=== PATIENT | male | born 1980 | race Caucasian/White ===

== ENCOUNTER 2019-09-13 08:57 | Emergency (ER) | payer OTHER ==
[2019-09-13 09:06] VITALS: BP 135/99
--- NOTE | 2019-09-13 09:11 | ED Physician Documentation ---
PD HPI SKIN - Stated complaint Stated Complaint: BUMP ON THIGH - Chief complaint Chief Complaint: Wound - History obtained from History obtained from: Patient - History of Present Illness Timing - onset: How many days ago (few) Timing - duration: Days (few) Timing - details: Gradual onset, Still present (has gotten bigger and more tender the past day.) Location: RLE (back of thigh) Quality / character: Painful, Discolored (red), Other (he has small 1 cm abscess right inguinal area as well that is draining some pus.). No: Draining Associated symptoms: No: Fever, N/V/D Similar symptoms before: Diagnosis (has had prior abscesses that have drained on their own or with squeezing and then gone away, but others will develop in other places. Has had one with I&D and Rx with oral abx and topical ointment and improved. However, continues to get more.) Recently seen: Not recently seen Review of Systems Constitutional: denies: Fever, Chills, Myalgias GI: denies: Nausea, Vomiting, Diarrhea Neurologic: denies: Generalized weakness, Focal weakness, Numbness PD PAST MEDICAL HISTORY - Past Medical History Past Medical History: No - Present Medications Home Medications: Ambulatory Orders Medication Instructions Recorded Confirmed Chlorhexidine Gluconate [Hibiclens] 15 ml TP DAILY #236 ml 09/13/19 Mupirocin 1 applic TP TID #15 g 09/13/19 Sulfamethox/Trimeth 800/160 1 each PO BID #14 tablet 09/13/19 [Bactrim Ds 800/160] Valacyclovir HCl [Valtrex] 0 mg 09/13/19 - Allergies Allergies/Adverse Reactions: Allergies Allergy/AdvReac Type Severity Reaction Status Date / Time No Known Drug Allergies Allergy Verified 09/13/19 09:06 PD ED PE NORMAL - Vitals Vital signs reviewed: Yes - General General: Alert and oriented X 3, Well developed/nourished - Cardiac Cardiac: RRR, No murmur - Respiratory Respiratory: Clear bilaterally - Derm Derm: Normal color, Warm and dry - Extremities Extremities: Other (right posterior upper thigh with skin abscess, with redness about 4 cm diameter, with central pointing and fluctuance. No drainage. few other small red bumps just few mm size on thigh as well. Right inguinal area with 1 cm sized abscess that is draining mild pus. ) - Neuro Neuro: Alert and oriented X 3, No motor deficit, No sensory deficit, Normal sp eech Results - Vitals Vitals: Vital Signs - 24 hr 09/13/19 09:02 Temperature 36.3 C L Heart Rate 90 Respiratory 18 Rate Blood Pressure 135/99 H O2 Saturation 97 Oxygen O2 Source Room air Procedures - Abscess I&D (location) right posterior upper thigh Preparation: Lidocaine 1%, With epi Incision: Incised with scalpel, Purulent drainage, Irrigated. No: Packed, Culture obtained Other: Pt tolerated well, Antibiotic prescribed PD MEDICAL DECISION MAKING - ED course Complexity details: considered differential (exam c/w abscess. He has small one at inguinal area that is draining already. Few small red bumps on thigh as well. Will treat with hibiclens, oral abx as well as I&D. ), d/w patient Departure - Departure Disposition: 01 Home, Self Care Clinical Impression: Thigh abscess Condition: Stable Record reviewed to determine appropriate education?: Yes Instructions: ED Abscess IandD Follow-Up: [facility] [Provider Group] Prescriptions: Chlorhexidine Gluconate [Hibiclens] 15 ml TP DAILY #236 ml Mupirocin 1 applic TP TID #15 g Sulfamethox/Trimeth 800/160 [Bactrim Ds 800/160] 1 each PO BID #14 tablet Comments: Warm moist soaks or compresses to the abscess area to promote drainage and improve blood flow. Bactrim antibiotic twice daily for a week. Use mupirocin antibiotic ointment to the current abscess areas 2-3 times daily. Also use the mupirocin daily a small amount worked around the fingernail beds and a little bit in the nostril openings. This tries to reduce the reservoirs where the staph aureus germs harbor. Also use chlorhexidine antiseptic wash head to toe daily for the next week and then once or twice a week after that for a few weeks. This also tries to decrease the load of germs on the skin surface to prevent subsequent infections. Hopefully this will reduce the germ load and reservoir so you do not get recurrent infections still. Tylenol or ibuprofen as needed for pains. Recheck if not improved well over the next several days. Discharge Date/Time: 09/13/19 10:16
[2019-09-13] MEDS ORDERED: KETOROLAC 60 MG/2 ML VIAL IM STA (09:20)
[2019-09-13] MEDS ORDERED: ACETAMINOPHEN 325 MG TABLET PO STA (09:20)
[2019-09-13] MEDS ORDERED: SULFAMETH/TRIMETH DS 800/160 MG TABLET PO STA (09:20)
== END 2019-09-13 10:16 | disposition home or self-care (01) ==
LOC: ED 08:57
DX: L02.415 Cutaneous abscess of right lower limb (principal); L02.214 Cutaneous abscess of groin
CPT/HCPCS: 10060; 96372; 99283; 99284; A9270

== ENCOUNTER 2019-11-13 14:04 | Outpatient (CLI) | payer OTHER ==
--- NOTE | 2019-11-13 17:59 | MRI Report ---
Reason: LOW BACK PAIN Procedure Date: 11/13/2019 Accession Number: [id number] / [id number] Procedure: MRI - Lumbar Spine W/O CPT Code: Final Report FULL RESULT: EXAM: MRI LUMBAR SPINE WITHOUT CONTRAST EXAM DATE: 11/13/2019 03:05 PM. CLINICAL HISTORY: Low back pain. COMPARISON: None. TECHNIQUE: Multiplanar, multisequence T1-weighted and fluid-sensitive sequences of the lumbar spine from T12 to S1 without contrast. Other: None. FINDINGS: Spinal Canal: The conus terminates at L1. The conus medullaris and cauda equina are unremarkable. Alignment: No scoliosis or spondylolisthesis. Bone Marrow: Five [id number] lumbar vertebral bodies are assumed. No fracture. No destructive bone lesion. Small amount of diskogenic endplate edema at the L3-L4 level. Disk Levels/Facets: T12-L1: Unremarkable. L1-L2: Central disk protrusion with small superior extrusion. Mild effacement of the thecal sac. No foraminal stenosis. L2-L3: Mild facet arthropathy. No stenosis. L3-L4: Mild disk height loss and dehydration. Annular disk bulge and mild degenerative facet arthropathy. Central protrusion with small inferior extrusion. Mild central canal stenosis. Mild bilateral foraminal narrowing. L4-L5: Disk height loss and dehydration. Annular disk bulge with broad-based central and right paracentral disk protrusion and moderate facet arthropathy. Mild central canal stenosis. Mild right greater than left foraminal narrowing. L5-S1: Mild facet arthropathy. No stenosis. Musculature: Normal. No edema or fatty atrophy. Other: The partially visualized retroperitoneum is unremarkable. IMPRESSION: 1. Multilevel lumbar degenerative disk and facet arthropathy. 2. L4-L5 disk bulge and protrusion with facet arthropathy contributing to mild central canal stenosis and mild foraminal narrowing. 3. L3-L4 disk bulge and protrusion contributing to mild central canal stenosis and mild foraminal narrowing. 4. L1-L2 central disk protrusion and extrusion with mild effacement of the thecal sac. Comment: The following findings are so common in adults without low back pain that while we report their presence, they must be interpreted with caution and in the context of the clinical situation. (Reference Anandak et al, Spine 2001) Prevalence of findings in patients without low back pain: Disk degeneration (any evidence): 92% Disk desiccation/T2 signal loss: 83% Disk height loss: 56% Disk bulge: 64% Disk protrusion: 32% Annular tear/high intensity zone: 38% RADIA
== END 2019-11-13 14:05 | disposition home or self-care (01) ==
LOC: DI 14:04
PROVIDERS: ATTEND Student in an Organized Health Care Education/Training Program
DX: M51.26 Other intervertebral disc displacement, lumbar region (principal); M47.816 Spondylosis without myelopathy or radiculopathy, lumbar region; M51.36 Other intervertebral disc degeneration, lumbar region; M48.061 Spinal stenosis, lumbar region without neurogenic claudication; M47.817 Spondylosis without myelopathy or radiculopathy, lumbosacral region
CPT/HCPCS: 72148